=== PATIENT | female | born 2000 | race Caucasian/White ===

== ENCOUNTER 2022-12-13 18:33 | Inpatient (IN) | payer OTHER ==
[~2022-12-13] VITALS: Ht 144.8 cm; Wt 52.8 kg
[2022-12-13] VITALS (8 sets, daily range): BP systolic 110–129; BP diastolic 69–83
[~2022-12-13 18:33] MED LIST: ACET-897 PO; inhaler INH; propranolol PO
[2022-12-13] MEDS ORDERED: ACET-683 PO (18:56)
[2022-12-13] MEDS ORDERED: HOME MED LIST COMPLETE! XX SCH (19:00)
[2022-12-13 19:47] LABS: HEMATOCRIT 33.1 % (36.0-47.0); HEMOGLOBIN 10.8 g/dl (12.0-15.5); MEAN CORPUSCULAR HEMOGLOBIN 28.3 pg (27.0-33.0); MEAN CORPUSCULAR HGB CONC 32.6 g/dl (32.0-36.5); MEAN CORPUSCULAR VOLUME 86.6 fl (80.0-96.0); PLATELET COUNT, AUTOMATED 280 10^3/uL (150-450); RED BLOOD COUNT 3.82 10^6/uL (4.00-5.40); WHITE BLOOD COUNT 9.3 10^3/uL (4.0-10.0)
[2022-12-13] MEDS ORDERED: LIDOCAINE 1% MDV 20ML VIAL INFIL PRN (20:30)
[2022-12-13] MEDS ORDERED: TRANEXAMIC ACID INJection 1,000 MG in NS 100 ML IV PRN (20:30)
[2022-12-13] MEDS ORDERED: CARBOPROST TROMETHAMINE 250 MCG/ML AMP IM PRN (20:30)
[2022-12-13] MEDS ORDERED: OXYTOCIN DRIP 30 UNITS in IV 1 EA IV PRN ×6 (20:30)
[2022-12-13] MEDS ORDERED: miSOPROStol 50MCG 1/2 TABLET PO ONE (20:30)
[2022-12-13] MEDS ORDERED: METHYLERGONOVINE MALEATE 0.2MG/ML 1ML VIAL IM PRN (20:30)
[2022-12-13] MEDS ORDERED: OXYTOCIN DRIP 30 UNITS in IV 1 EA IV SCH (20:30)
[2022-12-13] MEDS ORDERED: OXYTOCIN INJ 10UNITS/ML 1ML VIAL IV PRN (20:30)
[2022-12-13] MEDS ORDERED: OXYTOCIN INJ 10UNITS/ML 1ML VIAL IM PRN (20:30)
[2022-12-13] MEDS ORDERED: PENICILLIN G POTASSIUM 5 MU IV 5 MU in D5W MINI-BAG PLUS 100 ML IV STA (20:44)
[2022-12-13] MEDS: miSOPROStol 25MCG 1/4 TABLET PO PRN (20:56)
[2022-12-14] VITALS (37 sets, daily range): BP systolic 103–164; BP diastolic 62–128; O2SAT 96–97
[2022-12-14] MEDS: miSOPROStol 25MCG 1/4 TABLET PO PRN (01:17)
[2022-12-14] MEDS: LR 1,000 ML IV SCH ×3 (01:21→08:21)
[2022-12-14] MEDS ORDERED: EPIDURAL/PCA KEYS XX PRN (04:55)
[2022-12-14] MEDS ORDERED: LR 1,000 ML IV ONE (04:55)
[2022-12-14] MEDS ORDERED: ePHEDrine SULFATE 25 MG/5 ML(5MG/ML) SYRINGE IVP PRN (04:55)
[2022-12-14] MEDS ORDERED: diphenhydrAMINE 50MG/ML VIAL IV PRN (04:55)
[2022-12-14] MEDS ORDERED: ONDANSETRON 4MG 2ML VIAL IV PRN ×2 (04:55→09:40)
[2022-12-14] MEDS ORDERED: LR 500 ML IV PRN (04:55)
[2022-12-14] MEDS ORDERED: NALOXONE INJ 0.4MG/1ML VIAL IV PRN (04:55)
[2022-12-14] MEDS ORDERED: FENTANYL/ROPIVACAINE/NACL BAG 100 ML EPIDURAL SCH (04:55)
[2022-12-14] MEDS ORDERED: FENTANYL 2MCG/ML ROPIVACAINE 0.2% IN 0.9% NACL 100ML IVBAG As Ordered ONE (05:14)
[2022-12-14] MEDS ORDERED: PEN G POT 3,000,000 UNIT/50 ML 3,000,000 UNIT in IV 1 EA IV SCH (08:15)
[2022-12-14 09:40] LABS: CORD GAS ABE A -10.7; CORD GAS HCO3 A 20.2 MMOL/L; CORD GAS O2 SAT A 67.5 %; CORD GAS PCO2 A 65.9 mmHg; CORD GAS PH A 7.105 UNITS; CORD GAS PO2 A 35.4 mmHg; CORD GAS SBC A 15.6 MMOL/L; CORD GAS TCO2 A 22.3 MMOL/L
[2022-12-14] MEDS ORDERED: METHYLERGONOVINE MALEATE 0.2MG/ML 1ML VIAL IM PRN (09:40)
[2022-12-14] MEDS ORDERED: OXYTOCIN DRIP 30 UNITS in IV 1 EA IV SCH (09:40)
[2022-12-14] MEDS ORDERED: METOCLOPRAMIDE INJ 10MG/2ML VIAL IV PRN (09:40)
[2022-12-14] MEDS ORDERED: RHOGAM 300MCG (1500IU) INJ IM SCH (09:40)
[2022-12-14] MEDS ORDERED: DIBUCAINE 1% OINTMENT 30GM TOP PRN (09:40)
[2022-12-14] MEDS ORDERED: DOCUSATE SODIUM 100MG CAPSULE PO PRN (09:40)
[2022-12-14] MEDS ORDERED: LR 1,000 ML IV SCH (09:40)
[2022-12-14] MEDS: ACETAMINOPHEN 500 MG TAB PO SCH ×2 (12:34→18:20)
[2022-12-14] MEDS: PRENATAL VITAMINS CHEWABLE TABLET PO SCH (12:34)
[2022-12-14] MEDS: IBUPROFEN 800 MG TAB PO SCH ×2 (13:46→21:59)
[2022-12-15] MEDS: ACETAMINOPHEN 500 MG TAB PO SCH ×4 (00:13→18:58)
[2022-12-15 06:00] VITALS: BP 95/50; O2SAT 98
[2022-12-15] MEDS: IBUPROFEN 800 MG TAB PO SCH ×3 (06:14→22:17)
[2022-12-15 06:36] VITALS: BP 135/67
[2022-12-15 07:27] LABS: HEMATOCRIT 25.6 % (36.0-47.0); MEAN CORPUSCULAR HEMOGLOBIN 27.8 pg (27.0-33.0); MEAN CORPUSCULAR HGB CONC 31.6 g/dl (32.0-36.5); PLATELET COUNT, AUTOMATED 188 10^3/uL (150-450); RED BLOOD COUNT 2.91 10^6/uL (4.00-5.40); WHITE BLOOD COUNT 9.4 10^3/uL (4.0-10.0)
[2022-12-15 07:40] LABS: HEMOGLOBIN 8.1 g/dl (12.0-15.5)
[2022-12-15] MEDS: PRENATAL VITAMINS CHEWABLE TABLET PO SCH (09:00)
[2022-12-15 18:00] VITALS: BP 91/50; O2SAT 97
[2022-12-16] MEDS: ACETAMINOPHEN 500 MG TAB PO SCH ×3 (00:20→12:00)
[2022-12-16 06:00] VITALS: BP 114/77; O2SAT 99
[2022-12-16] MEDS: IBUPROFEN 800 MG TAB PO SCH ×2 (06:03→14:00)
[2022-12-16] MEDS ORDERED: MEASLES,MUMPS,RUBELLA VACCINE INJ (MMR-II) SC.IMMUN ONE (09:00)
[2022-12-16] MEDS: PRENATAL VITAMINS CHEWABLE TABLET PO SCH (09:54)
== END 2022-12-16 14:00 | disposition home or self-care (01) | DRG 807 ==
LOC: M LDI 18:33 → M OBS 12-14 11:50
PROVIDERS: ADMIT Obstetrics & Gynecology; ATTEND Obstetrics & Gynecology
PROC: 3E033VJ Introduction of Other Hormone into Peripheral Vein, Percutaneous Approach (ICD-10-PCS; 2022-12-13)
PROC: 10E0XZZ Delivery of Products of Conception, External Approach (ICD-10-PCS; principal; 2022-12-14)
DX: O36.5930 Maternal care for other known or suspected poor fetal growth, third trimester, not applicable or unspecified (principal); Z37.0 Single live birth; Z3A.37 37 weeks gestation of pregnancy; O99.344 Other mental disorders complicating childbirth; F41.0 Panic disorder [episodic paroxysmal anxiety]; O99.824 Streptococcus B carrier state complicating childbirth; F32.A Depression, unspecified; O24.420 Gestational diabetes mellitus in childbirth, diet controlled; F31.9 Bipolar disorder, unspecified

== ENCOUNTER → 2023-06-11 | Outpatient (REF) | payer OTHER ==
[~2023-06-11] MED LIST changes: +ACET-683 PO
[2023-06-11 18:42] LABS: HEMATOCRIT 40.4 % (36.0-47.0); HEMOGLOBIN 13.4 g/dl (12.0-15.5); MEAN CORPUSCULAR HEMOGLOBIN 28.8 pg (27.0-33.0); MEAN CORPUSCULAR HGB CONC 33.2 g/dl (32.0-36.5); MEAN CORPUSCULAR VOLUME 86.7 fl (80.0-96.0); PLATELET COUNT, AUTOMATED 364 10^3/uL (150-450); RED BLOOD COUNT 4.66 10^6/uL (4.00-5.40); WHITE BLOOD COUNT 4.9 10^3/uL (4.0-10.0)
[2023-06-11 18:54] LABS: ALKALINE PHOSPHATASE 92 U/L (46-116); ALT/SGPT 11 U/L (7.0-40); AST/SGOT < 8 U/L (<34); BILIRUBIN,TOTAL 0.5 MG/DL (0.3-1.2); BLOOD UREA NITROGEN 8 MG/DL (9-23); CARBON DIOXIDE LEVEL 24 MMOL/L (20-31); CHLORIDE LEVEL 108 MMOL/L (98-107); CREATININE FOR GFR 0.53 MG/DL (0.55-1.30); FOLATE 9.6 NG/ML (>5.4); GLOMERULAR FILTRATION RATE > 60.0 (>60); GLUCOSE, FASTING 73 MG/DL (60-100); MAGNESIUM LEVEL 1.9 MG/DL (1.8-2.4); POTASSIUM SERUM 4.2 MMOL/L (3.5-5.1); SODIUM LEVEL 138 MMOL/L (136-145); THYROID STIMULATING HORMONE 1.101 uIU/ML (0.55-4.78); TOTAL 25(OH) VITAMIN D 11.2 NG/ML (20.0-100.0)
[2023-06-11 18:55] LABS: VITAMIN B12 LEVEL 345 PG/ML (211-911)
[2023-06-11 19:10] LABS: HEMOGLOBIN A1c 5.1 % (4.0-6.0)
[2023-06-11 19:26] LABS: HIV 1&2 SCREEN NEGATIVE (NEGATIVE)
[2023-06-11 19:33] LABS: HEPATITIS C VIRUS ABY INDEX 0.03 INDEX (<0.8)
== END ==
LOC: M LAB REF 17:37
PROVIDERS: ATTEND Physician Assistant
DX: Z00.00 Encounter for general adult medical examination without abnormal findings (principal); R55 Syncope and collapse; Z11.9 Encounter for screening for infectious and parasitic diseases, unspecified; R00.2 Palpitations

== ENCOUNTER → 2023-06-15 | Outpatient (CLI) | payer OTHER | LOC: M EKG 09:18 | PROVIDERS: ATTEND Physician Assistant | DX: R00.2 Palpitations (principal) ==